=== PATIENT | female | born 1970 | race Caucasian/White ===

== ENCOUNTER → 2023-07-31 | Outpatient (CLI) | payer OTHER | LOC: COL.RAD 06:55 | DX: C7A.012 Malignant carcinoid tumor of the ileum (principal) | CPT/HCPCS: Q9967 ==

== ENCOUNTER → 2024-07-04 | Outpatient (CLI) | payer OTHER ==
[~2024-07-04] MED LIST: Iohexol 300 - 100 ML VIAL IV ONE; NS 100 ML IV SCH
== END ==
LOC: COL.RAD 07:07
DX: C7A.012 Malignant carcinoid tumor of the ileum (principal)
CPT/HCPCS: Q9967